=== PATIENT | male | born 2000 | race Two or more races ===

== ENCOUNTER 2018-08-15 23:23 | Emergency (ER) | payer SELFPAY ==
[~2018-08-15] VITALS: Ht 149.9 cm; Wt 59.0 kg
--- NOTE | 2018-08-15 23:25 | NUR ---
ED Nurse Note: BIBA patient presents having overdoes on meth. Patient arrived in stable condition but tachycardic and diaphoretic.
[2018-08-15 23:36] VITALS: BP 162/96
[2018-08-15] MEDS ORDERED: DiphenhydrAMINE 50mg/ml Inj IM ONE (23:45)
[2018-08-15] MEDS ORDERED: LORazepam Inj 2mg/ml 1ml IM ONE (23:45)
[2018-08-15] MEDS ORDERED: Haloperidol 5mg/ml Inj IM ONE (23:45)
--- NOTE | 2018-08-15 23:51 | Emergency Room Report ---
History of Present Illness General Chief Complaint: Substance Abuse Source: Patient, EMS Present Illness HPI Patient is brought by EMS for bizarre behavior. Allegedly he's been using drugs. The patient is not willing to talk about he feels at this time also he declines to state what he's been taking. Later he admits to [facility]. He also had some back pain and has abrasions there. Will not state how these occurred. Allergies: Coded Allergies: No Known Allergies (Unverified , 08/15/18) Patient History Limited by: medical condition - Delusional Past Medical History: see triage record Social History: Reports: drug use Social History Narrative Lives with parent Reviewed Nursing Documentation: PMH: Agreed; PSxH: Agreed Nursing Documentation-PMH Past Medical History: No Stated History Review of Systems All Other Systems: limited Physical Exam Vital Signs Date Time Temp Pulse Resp B/P (MAP) Pulse Ox O2 Delivery O2 Flow Rate FiO2 08/15/18 23:23 100.6 156 20 98 Room Air Sp02 EP Interpretation: reviewed, normal General Appearance: no apparent distress, other - diaphoretic Head: normocephalic, atraumatic Eyes: bilateral eye PERRL, bilateral eye EOMI, bilateral eye Scleral Injection ENT: moist mucus membranes Neck: full range of motion, supple, no bony tend Respiratory: chest non-tender, lungs clear, normal breath sounds Cardiovascular #1: regular rate, rhythm Cardiovascular #2: 2+ radial (L) Gastrointestinal: non tender, soft, decreased bowel sounds Genitourinary: no CVA tenderness Musculoskeletal: other - Slight mid back tenderness with abrasions no bony tenderness and range of motion normal Neurologic: alert, petal cutter III-XII nml as tested, motor strength/tone normal, DTRs symmetric, sensory intact, other - Slurred speech and ataxia Psychiatric: other - Poor judgment, violent with staff Skin: normal color, palpation normal, abrasions - Mid back Medical Decision Making Medical: Alcohol Abuse, Substance Abuse Reaction to Intervention: Escalated Behavior Restraint Reassesment I, Rubens Alfaro MD, have personally evaluated this patient. Laboratory tests have been reviewed and addressed accordingly. The patient is deemed to present a danger to themselves and/or others. This is based on the exam, history ( provided by patient, EMS) and observed or reported behavior. Attempts for non-invasive measures have been considered and/or attempted, however, have been futile. It is in the best interest of the nursing staff, the patient, and others involved in this patient's care that behavioral restraints be applied. Patient evaluation reveals the following: Patient paranoid, combative, not responding to attempts to de-escalate. Diagnostic Impression: Primary Impression: Amphetamine abuse Additional Impressions: Psychosis Qualified Codes: F23 - Brief psychotic disorder Leukocytosis Qualified Codes: D72.828 - Other elevated white blood cell count Fever Qualified Codes: R50.9 - Fever, unspecified Renal insufficiency Rhabdomyolysis Qualified Codes: M62.82 - Rhabdomyolysis ER Course Patient presents with bizarre behavior and paranoid ideation. Differential includes underlying psychopathology, substance abuse, alcohol intoxication, electrolyte imbalance amongst others. Is a nonfocal neurologic exam at this time and is ambulatory but delusional and psychotic. He's striking out at staff and therefore behavioral restraints are required. Sedation is also ordered. Patient be evaluated with labs, EKG and repeated exams. Because the patient is combative he needs to be restrained and sedated. Low grade fever. Leukocytosis. No source. No evidence of meningitis. Polycythemia. Renal insufficiency. Elevated CPK. Slightly low potassium. Hydration continues. No longer tachycardic. Repeat temp. Patient no longer combative. Oriented and cooperative. Repeat labs. Labs improved. Contd hydration and K orally. Discussed need for follow-up with the patient. He understands. Denies suicidal or homicidal ideation. Patient stable for outpatient observation and treatment. Laboratory Tests Test 08/16/18 00:35 08/16/18 05:13 White Blood Count 20.0 K/UL (4.8-10.8) H 13.8 K/UL (4.8-10.8) H Red Blood Count 6.59 M/UL (4.70-6.10) H 5.32 M/UL (4.70-6.10) Hemoglobin 19.1 G/DL (14.2-18.0) *H 15.4 G/DL (14.2-18.0) Hematocrit 55.4 % (42.0-52.0) H 44.2 % (42.0-52.0) Mean Corpuscular Volume 84 FL (80-99) 83 FL (80-99) Mean Corpuscular Hemoglobin 29.0 PG (27.0-31.0) 29.0 PG (27.0-31.0) Mean Corpuscular Hemoglobin Concent 34.6 G/DL (32.0-36.0) 34.9 G/DL (32.0-36.0) Red Cell Distribution Width 11.8 % (11.6-14.8) 11.7 % (11.6-14.8) Platelet Count 151 K/UL (150-450) 270 K/UL (150-450) # Mean Platelet Volume 10.8 FL (6.5-10.1) H 10.6 FL (6.5-10.1) H Neutrophils (%) (Auto) % (45.0-75.0) 76.9 % (45.0-75.0) H Lymphocytes (%) (Auto) % (20.0-45.0) 12.0 % (20.0-45.0) L Monocytes (%) (Auto) % (1.0-10.0) 9.9 % (1.0-10.0) Eosinophils (%) (Auto) % (0.0-3.0) 0.4 % (0.0-3.0) Basophils (%) (Auto) % (0.0-2.0) 0.7 % (0.0-2.0) Differential Total Cells Counted 100 Neutrophils % (Manual) 78 % (45-75) H Lymphocytes % (Manual) 14 % (20-45) L Monocytes % (Manual) 7 % (1-10) Eosinophils % (Manual) 1 % (0-3) Basophils % (Manual) 0 % (0-2) Band Neutrophils 0 % (0-8) Platelet Estimate Adequate Platelet Morphology Normal Red Blood Cell Morphology Normal Urine Color Pale yellow Urine Appearance Clear Urine pH 7 (4.5-8.0) Urine Specific [place] 1.005 (1.005-1.035) Urine Protein 3+ (NEGATIVE) H Urine Glucose (UA) Negative (NEGATIVE) Urine Ketones Negative (NEGATIVE) Urine Blood 2+ (NEGATIVE) H Urine Nitrite Negative (NEGATIVE) Urine Bilirubin Negative (NEGATIVE) Urine Urobilinogen Normal MG/DL (0.0-1.0) Urine Leukocyte Esterase Negative (NEGATIVE) Urine RBC 2-4 /HPF (0 - 0) H Urine WBC 0-2 /HPF (0 - 0) Urine Squamous Epithelial Cells Occasional /LPF Urine Bacteria Occasional /HPF (NONE) Sodium Level 132 MMOL/L (136-145) L 139 MMOL/L (136-145) Potassium Level 3.1 MMOL/L (3.5-5.1) L 3.1 MMOL/L (3.5-5.1) L Chloride Level 91 MMOL/L (98-107) L 103 MMOL/L (98-107) Carbon Dioxide Level 18 MMOL/L (21-32) L 26 MMOL/L (21-32) Anion Gap 23 mmol/L (5-15) H 10 mmol/L (5-15) Blood Urea Nitrogen 9 mg/dL (7-18) 8 mg/dL (7-18) Creatinine 1.8 MG/DL (0.55-1.30) H 1.2 MG/DL (0.55-1.30) Estimate Glomerular Filtration Rate 48.3 mL/min (>60) > 60 mL/min (>60) Glucose Level 178 MG/DL (74-106) H 103 MG/DL (74-106) Calcium Level 10.2 MG/DL (8.5-10.1) H 8.1 MG/DL (8.5-10.1) #L Total Bilirubin 0.8 MG/DL (0.2-1.0) 0.7 MG/DL (0.2-1.0) Aspartate Amino Transferase (AST) 168 U/L (15-37) H 133 U/L (15-37) H Alanine Aminotransferase (ALT) 157 U/L (12-78) H 119 U/L (12-78) H Alkaline Phosphatase 91 U/L (46-116) 71 U/L (46-116) Total Creatine Kinase 6124 U/L (26-140) H 5367 U/L (26-308) H Total Protein 10.0 G/DL (6.4-8.2) H 7.5 G/DL (6.4-8.2) Albumin 4.7 G/DL (3.4-5.0) 3.8 G/DL (3.4-5.0) Globulin 5.3 g/dL 3.7 g/dL Albumin/Globulin Ratio 1.1 (1.0-2.7) 1.0 (1.0-2.7) Salicylates Level < 0.2 ug/mL (2.8-20) L Urine Opiates Screen Negative (NEGATIVE) Acetaminophen Level < 2 MCG/ML (10-30) L Urine Barbiturates Screen Negative (NEGATIVE) Phencyclidine (PCP) Screen Negative (NEGATIVE) Urine Amphetamines Screen Positive (NEGATIVE) H Urine Benzodiazepines Screen Negative (NEGATIVE) Urine Cocaine Screen Negative (NEGATIVE) Urine Marijuana (THC) Screen Negative (NEGATIVE) Serum Alcohol < 3 mg/dL EKG Diagnostic Results Rate: tachycardiac Rhythm: NSR ST Segments: no acute changes Rhythm Strip Diag. Results EP Interpretation: yes Rhythm: no PVC's, no ectopy, other - ST Chest X-Ray Diagnostic Results Chest X-Ray Diagnostic Results : Chest X-Ray Ordered: Yes # of Views/Limited/Complete: 1 View Indication: Other EP Interpretation: Yes Interpretation: no consolidation, no effusion, no pneumothorax Impression: No acute disease Electronically Signed by: Electronically signed by Rubens Alfaor MD Last Vital Signs Date Time Temp Pulse Resp B/P (MAP) Pulse Ox O2 Delivery O2 Flow Rate FiO2 08/16/18 08:55 98.0 76 19 139/62 100 Room Air Status: improved Disposition: HOME, SELF-CARE Condition: Improved Rubens Alfaro MD August 15, 2018 23:51
[2018-08-16] VITALS (21 sets, daily range): BP systolic 119–163; BP diastolic 67–111
[2018-08-16] MEDS ORDERED: Tetanus/Diptheria/Pertussis IM ONE
[2018-08-16] MEDS ORDERED: Bacitracin Oint UD TOPIC ONE
--- NOTE | 2018-08-16 00:11 | NUR ---
[facility] is here
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
[2018-08-16 00:52] LABS: APPEARANCE,URINE CLEAR; BILIRUBIN, URINE NEGATIVE (NEGATIVE); COLOR,URINE PALE YELLOW; GLUCOSE, URINE (UA) NEGATIVE (NEGATIVE); KETONES,URINE NEGATIVE (NEGATIVE); LEUKOCYTE ESTERASE ,URINE NEGATIVE (NEGATIVE); NITRITE,URINE NEGATIVE (NEGATIVE); PH,URINE 7 (4.5-8.0); PROTEIN,URINE 3+ (NEGATIVE); UROBILINOGEN,URINE NORMAL MG/DL (0.0-1.0)
[2018-08-16 01:02] LABS: ANION GAP 23 mmol/L (5-15); BLOOD UREA NITROGEN 9 mg/dL (7-18); CALCIUM 10.2 MG/DL (8.5-10.1); CARBON DIOXIDE 18 MMOL/L (21-32); CHLORIDE 91 MMOL/L (98-107); CREATININE 1.8 MG/DL (0.55-1.30); POTASSIUM 3.1 MMOL/L (3.5-5.1); SODIUM 132 MMOL/L (136-145)
[2018-08-16 01:11] LABS: HEMATOCRIT 55.4 % (42.0-52.0); HEMOGLOBIN 19.1 G/DL (14.2-18.0); MEAN CORPUSCULAR VOLUME 84 FL (80-99); PLATELET COUNT 151 K/UL (150-450); RED BLOOD COUNT 6.59 M/UL (4.70-6.10); RED CELL DISTRIBUTION WIDTH 11.8 % (11.6-14.8)
[2018-08-16 01:16] LABS: ALANINE AMINOTRANSFERASE 157 U/L (12-78); ASPARTATE AMINO TRANSFERASE 168 U/L (15-37); BILIRUBIN,TOTAL 0.8 MG/DL (0.2-1.0); CREATINE KINASE 6124 U/L (26-140)
[2018-08-16 01:17] LABS: ALBUMIN 4.7 G/DL (3.4-5.0); ALBUMIN/GLOBULIN RATIO 1.1 (1.0-2.7); ALKALINE PHOSPHATASE 91 U/L (46-116)
--- NOTE | 2018-08-16 01:25 | NUR ---
ED Nurse Note: Patient remains intermittently combative, has removed IV at left AC. Another IV started at right hand.
--- NOTE | 2018-08-16 02:30 | NUR ---
ED Nurse Note: Patient sleeps in spurts, wakes up agitated and unable to follow directions. Will continue to monitor.
--- NOTE | 2018-08-16 03:50 | NUR ---
ED Nurse Note: Patient is awake and more cooperative, restraints removed. vital signs within normal limits. PAtient also voided.
--- NOTE | 2018-08-16 04:15 | NUR ---
ED Nurse Note: Patient resting comfortably, is able to follow commands and does not exhibit signs of violence towards staff.
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
[2018-08-16 05:24] LABS: BASOPHILS % (AUTO) 0.7 % (0.0-2.0); EOSINOPHILS % (AUTO) 0.4 % (0.0-3.0); HEMATOCRIT 44.2 % (42.0-52.0); HEMOGLOBIN 15.4 G/DL (14.2-18.0); MEAN CORPUSCULAR VOLUME 83 FL (80-99); MONOCYTES % (AUTO) 9.9 % (1.0-10.0); NEUTROPHILS % (AUTO) 76.9 % (45.0-75.0); PLATELET COUNT 270 K/UL (150-450); RED BLOOD COUNT 5.32 M/UL (4.70-6.10); RED CELL DISTRIBUTION WIDTH 11.7 % (11.6-14.8); WHITE BLOOD COUNT 13.8 K/UL (4.8-10.8)
[2018-08-16 05:34] LABS: ANION GAP 10 mmol/L (5-15); BLOOD UREA NITROGEN 8 mg/dL (7-18); CALCIUM 8.1 MG/DL (8.5-10.1); CARBON DIOXIDE 26 MMOL/L (21-32); CHLORIDE 103 MMOL/L (98-107); CREATININE 1.2 MG/DL (0.55-1.30); POTASSIUM 3.1 MMOL/L (3.5-5.1); SODIUM 139 MMOL/L (136-145)
[2018-08-16 05:47] LABS: ALANINE AMINOTRANSFERASE 119 U/L (12-78); ALBUMIN 3.8 G/DL (3.4-5.0); ALKALINE PHOSPHATASE 71 U/L (46-116); ASPARTATE AMINO TRANSFERASE 133 U/L (15-37); BILIRUBIN,TOTAL 0.7 MG/DL (0.2-1.0); CREATINE KINASE 5367 U/L (26-308)
--- NOTE | 2018-08-16 06:40 | NUR ---
ED Nurse Note: received report from ROBE Dahl. pt is aox4, calm and cooperative, pt K+ 3.1, Ca+ 8.1 ERMD aware. pt has abrasion on lef wrist. pt shows no signs of distress, pt vss, pt resting in bed fluids running
--- NOTE | 2018-08-16 07:03 | NUR ---
Note undone in EDM - 08/16/18 at 0709 by ANDREINA ER DISCHARGE NOTE: Patient is cleared to be discharged per ERMD, pt is aox4, on room air, with stable vital signs. pt was given dc and prescription instructions, pt was able to verbalize understanding, pt id band removed. pt is able to ambulate with steady gait. pt took all belongings. accompanied by
--- NOTE | 2018-08-16 07:04 | NUR ---
Mary Jane crow in [facility] - 08/16/18 at 0709 by ANDREINA HAND-OFF: Report given to Nnamdi Amador RN.
--- NOTE | 2018-08-16 07:05 | NUR ---
HAND-OFF: Report given to Nnamdi Amador RN.
--- NOTE | 2018-08-16 07:14 | NUR ---
ED Nurse Note: Received patient sleeping in bed. per ERMD pt is ok to go after bolus completed.
--- NOTE | 2018-08-16 08:54 | NUR ---
ER DISCHARGE NOTE: Patient is cleared to be discharged per ERMD, pt is aox4, sober, ambulatory, on room air, with stable vital signs. pt was given dc instructions, pt was able to verbalize understanding, pt id band and 2 iv sites removed without complications. pt was off from behavior restrain since 545. pt is able to ambulate with steady gait. pt took all belongings from locker #3.
== END 2018-08-16 08:57 | disposition home or self-care (01) ==
LOC: EDBD 23:23 → EMR 23:40
DX: F15.10 Other stimulant abuse, uncomplicated (principal); F23 Brief psychotic disorder; D72.828 Other elevated white blood cell count; R50.9 Fever, unspecified; M62.82 Rhabdomyolysis; N28.9 Disorder of kidney and ureter, unspecified; S20.419A Abrasion of unspecified back wall of thorax, initial encounter; X58.XXXA Exposure to other specified factors, initial encounter; Y92.9 Unspecified place or not applicable; R00.0 Tachycardia, unspecified; Z23 Encounter for immunization
CPT/HCPCS: 36415; 71045; 80053; 80307; 81003; 82550; 82962; 85007; 85025; 90471; 90715; 93005; 96360; 96361; 96372; 99284; G0480; J1200; J1630; 80329; J8499

== ENCOUNTER 2018-09-09 10:23 | Emergency (ER) | payer SELFPAY ==
[~2018-09-09] VITALS: Ht 162.6 cm; Wt 54.4 kg
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
[2018-09-09 10:40] VITALS: BP 128/78
--- NOTE | 2018-09-09 12:50 | NUR ---
ED Nurse Note: PT LAYING PEACEFULLY IN BED IN NAD. AOX4. DISCHARGE PAPERWORK EXPLAINED TO PT. PT VERBALIZES UNDERSTANDING AND ALL QUSETIONS ANSWERED. DISCHARGE PAPERWORK GIVEN TO PT AND ID WRISTBAND REMOVED. PT WALKED OUT OF ER WITH STEADY GAIT AND ALL BELONGINGS.
[2018-09-09 12:51] VITALS: BP 124/72
--- NOTE | 2018-09-20 13:49 | Cardiology Report ---
APPROVED REPORT EKG Measurement Heart [id number] Normal sinus rhythm Normal ECG
== END 2018-09-09 12:48 | disposition home or self-care (01) ==
LOC: MERGE 10:23 → EDBD 10:23 → EMR 12:00
DX: F15.10 Other stimulant abuse, uncomplicated (principal); R07.9 Chest pain, unspecified; M54.9 Dorsalgia, unspecified
CPT/HCPCS: 93005; 99283